=== PATIENT | female | born 2005 | race Caucasian/White ===

== ENCOUNTER 2024-05-24 07:49 | Day surgery (SDC) | payer BC ==
[2024-05-20 15:21] VITALS: BMI 28.1
[2024-05-20 15:35] LABS: Hematocrit 41.3 % (34.9-44.5); Hemoglobin 14.2 g/dL (12.0-15.5); Mean Corpuscular HGB CONC 34.4 g/dL (32.0-36.0); Mean Corpuscular Hemoglobin 29.5 pg (27.0-33.0); Mean Corpuscular Volume 85.7 fL (81.6-98.3); Mean Platelet Volume 9.2 fL (7.4-10.4); Platelet Count 375 10x3/uL (150-450); RBC Distribution Width 12.5 % (11.5-14.5); Red Blood Cell (RBC) Count 4.82 10x6/uL (3.90-5.03); White Blood Cell (WBC) Count 9.5 10x3/uL (3.5-10.5)
[2024-05-20 15:49] LABS: BHCG - Serum Negative (NEGATIVE); Pregs Control Background? CLEAR/WHITE (CLR/WHITE); Pregs Control Bar Appear? YES (CONTROL BAR)
[2024-05-24] MEDS ORDERED: CeleCOXIB 100 MG CAP ONE (07:53)
[2024-05-24] MEDS ORDERED: Gabapentin 300 MG CAP ONE (07:53)
[2024-05-24] MEDS ORDERED: Famotidine/PF 20 mg/2ml Vial ONE (07:54)
[2024-05-24] MEDS ORDERED: Bupivacaine PF 0.5% 30 ML VIAL ONE (08:16)
[2024-05-24] MEDS ORDERED: EPINEPHrine 1 MG/ML VIAL ONE (08:16)
[2024-05-24] MEDS ORDERED: Scopolamine 1 mg/72 hour Patch ONE (09:52)
[2024-05-24] MEDS ORDERED: Midazolam HCl 2 mg/2 ml Vial ONE (09:52)
[2024-05-24] MEDS ORDERED: CEFAZOLIN 2 GM VIAL ONE (10:05)
[2024-05-24] MEDS ORDERED: Promethazine HCl 25 MG/ML VIAL ONE (10:17)
[2024-05-24] MEDS ORDERED: HYDROmorphone 0.5 MG/0.5 ML SYRINGE ONE (10:18)
[2024-05-24] MEDS ORDERED: PROPOFOL 20 ML ONE (10:18)
[2024-05-24] MEDS ORDERED: fentaNYL 50 mcg/mL 1 mL Vial ONE (10:18)
[2024-05-24] MEDS ORDERED: Rocuronium Bromide 10 MG/ML (10ML VIAL) ONE (10:22)
[2024-05-24] MEDS ORDERED: Dexamethasone 20 MG/5 ML VIAL ONE (10:27)
[2024-05-24] MEDS ORDERED: Ondansetron PF 4 MG/2 ML Vial ONE (10:27)
[2024-05-24] MEDS ORDERED: Ketorolac Tromethamine 30 MG (1 mL) VIAL ONE (10:27)
[2024-05-24] MEDS ORDERED: SUGAMMADEX SODIUM 200 MG/2 ML VIAL ONE (11:06)
[2024-05-24] MEDS ORDERED: Meperidine HCl/PF 25 MG (1 mL) VIAL ONE (11:33)
== END 2024-05-24 13:20 | disposition home or self-care (01) ==
LOC: CSHSDC 07:49
PROVIDERS: ATTEND Obstetrics & Gynecology
PROC: 0UDB8ZZ Extraction of Endometrium, Via Natural or Artificial Opening Endoscopic (ICD-10-PCS; principal; 2024-05-24)
DX: N80.3C2 Endometriosis of the left uterosacral ligament, unspecified depth (principal); G89.29 Other chronic pain; F90.9 Attention-deficit hyperactivity disorder, unspecified type; F41.9 Anxiety disorder, unspecified; F32.A Depression, unspecified; Z79.899 Other long term (current) drug therapy; Z90.89 Acquired absence of other organs; Z98.890 Other specified postprocedural states
CPT/HCPCS: 36415; 84703; 85027; 86850; 86900; 86901; 88305; C1889; J0171; J0665; J1100; J1170; J1885; J2175; J2250; J2405; J2550; J2704; J3010; S0028